=== PATIENT | female | born 1975 | race Caucasian/White ===

== ENCOUNTER 2021-10-15 12:44 | Emergency (ER) | payer OTHER ==
[2021-10-15] MEDS ORDERED: PERCOCET 5/325 T1 EA PO (17:59)
== END 2021-10-15 13:33 | disposition left against medical advice (07) ==
LOC: ER1 12:44
DX: M25.511 Pain in right shoulder (principal); F17.210 Nicotine dependence, cigarettes, uncomplicated
CPT/HCPCS: 73030; 99283